=== PATIENT | female | born 1995 | race Caucasian/White ===

== ENCOUNTER 2021-08-31 17:23 | Emergency (ER) | payer BC, SELFPAY ==
[2021-08-31 17:45] VITALS: BP 114/71; PULSE 79; RESP 16; TEMP 36.2; O2SAT 99
--- NOTE | 2021-08-31 18:01 | ED.DENTAL ---
HPI - Dental/Oral General Chief complaint: Dental/Oral Stated complaint: tooth ache Time Seen by Provider: 08/31/21 18:01 Source: patient Mode of arrival: ambulatory Limitations: no limitations History of Present Illness HPI Narrative: Quyen Hebert is a 25 yo female with a PMH of dental pain, asthma, tobacco abuse, [facility] dental pain and left upper dental pain. Her dentition is poor-since she was unable to return to see you the dental school for missing appointments Related Data Home Medications Medication Instructions Recorded Confirmed albuterol sulfate 90 mcg/actuation 90 mcg inhalation DIRECTED 08/31/21 08/31/21 aerosol inhaler Allergies Allergy/AdvReac Type Severity Reaction Status Date / Time No Known Allergies Allergy Verified 09/17/15 17:57 Review of Systems Review of Systems: CONSTITUTIONAL: Denies fever, chills, sweats. EYES: Denies visual changes, redness, discharge. ENT: Denies rhinorrhea, congestion, sore throat, otalgia. CARDIOVASCULAR: Denies chest pain, palpitations, edema. RESPIRATORY: Denies dyspnea, wheezing, cough GASTROINTESTINAL: Denies abdominal pain, nausea, vomiting, diarrhea. GENITOURINARY: Denies dysuria, hematuria, abnormal discharge SKIN: Denies rash or itching. NEUROLOGIC: Denies numbness, or focal weakness. PSYCHIATRIC: Denies anxiety or depression. Bilateral lower dental pain the left upper dental pain PMFSH Past Medical History Medical History Asthma Tobacco abuse Social History Social History (Updated 08/31/21 @ 18:06 by Neha Moreira CNP) Smoking status: Current every day smoker Alcohol intake: current Comments At time of signature, I agree with nursing past medical, surgical, social and family history. There is no relevant family history pertinent to the presenting complaint. Exam Narrative: GENERAL: This is a well-nourished, well-developed patient, in mild distress. HEAD: normocephalic, atraumatic. EYES: Sclera clear/white. Vision is grossly intact. EARS: External ears normal, . Hearing grossly intact. NOSE: External nose normal without nasal discharge, nares without redness, no rhinorrhea. THROAT: Mucous membranes moist, has poor dentition on both posterior sides of teeth has pain in left upper side with some gum swelling NECK: Neck supple, non-tender CARDIOVASCULAR: Regular rate and rhythm without murmurs, gallops, or rubs. RESPIRATORY: Clear to auscultation. Breath sounds equal bilaterally. No wheezes, rales, or rhonchi. GASTROINTESTINAL: Not done SKIN: warm, intact with no suspicious lesions or rash, good texture and turgor. NEURO: awake, alert, and oriented to person, place and time. There were no obvious focal neurologic abnormalities. Steady gait EXTREMITIES: Normal range of motion. BACK: Nontender without deformity Course Course Emergency Course: Patient comes to [facility] with bilateral lower and left upper dental pain Missed appointment at [facility] dental [facility] was not allowed to return there for appointments and does not have a dentist Started on penicillin for tooth infection and given Tylenol 3 for pain may supplement this with ibuprofen 400 mg 2 times daily Level of Care: Express Care Visit Vital Signs Vital signs: Vital Signs Temperature 97.2 F L 08/31/21 17:45 Pulse Rate 79 08/31/21 17:45 Respiratory Rate 16 08/31/21 17:45 Blood Pressure 114/71 08/31/21 17:45 Pulse Oximetry 99 08/31/21 17:45 Oxygen Delivery Room Air 08/31/21 17:45 Temperature 97.2 F L 08/31/21 17:45 Pulse Rate 79 08/31/21 17:45 Respiratory Rate 16 08/31/21 17:45 Blood Pressure 114/71 08/31/21 17:45 Pulse Oximetry 99 08/31/21 17:45 Oxygen Delivery Room Air 08/31/21 17:45 MDM - Dental/Oral Differential Diagnosis Differential diagnosis: Likely gingival abscess, dental caries, toothache, dental abscess and other Critic
== END 2021-08-31 18:28 | disposition home or self-care (01) ==
PROVIDERS: Emergency Provider Nurse Practitioner
DX: K04.7 Periapical abscess without sinus (principal); J45.909 Unspecified asthma, uncomplicated
CPT/HCPCS: 99213; G0463

== ENCOUNTER 2021-09-18 23:28 | Emergency (ER) | payer BC, SELFPAY ==
--- NOTE | ~2021-09-18 | XR_ITS ---
EXAMINATION: XR knee LT 3V DATE: 09/19/2021 00:15 INDICATION: Left knee pain. Fall. TECHNIQUE: 3 views of left knee were obtained. COMPARISON: None. FINDINGS: Bone alignment is normal. No fracture. There is a benign bone island in proximal tibia. Emelia nt spaces are well maintained. There is no knee joint effusion. IMPRESSION: 1. No fracture. Reviewed, dictated and finalized at location A. IMPRESSION: 1. No fracture.
--- NOTE | ~2021-09-18 | XR_ITS ---
EXAMINATION: XR ankle LT min 3V DATE: 09/19/2021 00:15 INDICATION: Left ankle pain. Fall. TECHNIQUE: 4 views of left ankle were obtained. COMPARISON: Left ankle radiographs 04/06/2009 FINDINGS: Bone alignment is normal. No fracture. There is mild osteoarthritis of talonavicular joint. There are enthesophytes at the posterior and plantar aspects of calcaneal tuberosity. IMPRESSION: 1. No fracture. Reviewed, dictated and finalized at location A. IMPRESSION: 1. No fracture.
[2021-09-18 23:29] VITALS: BP 113/79; PULSE 96; RESP 17; TEMP 36.1; O2SAT 98
--- NOTE | 2021-09-18 23:55 | ED.LOWEXIN ---
HPI - Extremity Injury (Lower) General Chief Complaint: Extremity Injury, Lower Stated Complaint: Left knee pain, left ankle pain Time Seen by Provider: 09/18/21 23:40 History of Present Illness HPI Narrative: Patient is a 25-year-old female complaining of left knee and left ankle pain after she tripped and fell earlier today. Patient states that her pain is 6 out of 10, aching, worse with palpation and movement. Patient states that she was able to stand up and ambulate after the fall. Patient denies any symptoms prior to the fall. Patient denies any head, neck, chest, abdomen, back, pelvis or any other extremity pain/injury. Related Data Allergies Allergy/AdvReac Type Severity Reaction Status Date / Time No Known Allergies Allergy Verified 09/18/21 23:34 Review of Systems Review of Systems: See HPI All systems reviewed & are unremarkable except as noted in HPI and below PMFSH Past Medical History Medical History Asthma Tobacco abuse Social History Social History Smoking status: Current every day smoker Alcohol intake: current Exam Const: General: cooperative, healthy appearing, comfortable, no acute distress, well developed, alert and awake; No confusion Orientation/consciousness: oriented to person, oriented to place, oriented to time, patient oriented x3 and No confusion Limitations: no limitations HENMT: Head: normal to inspection, normocephalic and atraumatic Ears: hearing grossly normal bilaterally, TM normal on the right and TM normal on the left General nose exam: Normal external nose present, Normal nares present and No nasal discharge present Face and sinus: normal facial exam Mouth: Yes Normal oral and palatal mucosa present, Yes lip normal, Yes tongue normal and Yes oropharynx normal Throat: posterior oropharynx normal, tonsils normal and uvula midline Eyes: General: appearance normal, both eyes and all related structures Pupils: Equal, round and reactive pupils present EOM: EOMs intact bilaterally Neck: Neck: normal visual inspection, full ROM, no lymphadenopathy and no meningeal signs Chest: Chest palpation & inspection: normal inspection of the chest Resp: Effort & Inspection: normal respiratory effort, able to speak in complete sentences, no respiratory distress and not tachypneic Auscultation: clear to auscultation bilaterally, no crackles, no rales, no rhonchi and no wheezes Cardio: Rate: regular rate Rhythm: regular rhythm GI: Inspection: normal to inspection GI Palp: No abdominal tenderness, Yes Soft to palpation, No Tenderness to palpation present (GI), No Guarding due to palpation present (GI), No Rigid due to palpation and No Rebound tenderness present Auscultation: normal bowel sounds : General: Yes no CVA tenderness Back/Spine/Pelvis: Back: no CVA tenderness Skin: General skin exam: normal color, no rashes or lesions noted, elasticity normal and turgor normal Neuro: General: oriented to person, oriented to place, oriented to time, patient oriented x3, tone normal, moves all extremities, Normal light touch and pain sensation, no meningeal signs, no focal motor deficits, CN's II-XI intact bilaterally and No confusion Cranial nerves: Yes Equal, round and reactive pupils present Speech: No Abnormal speech present Sensory Exam: No Sensory deficit (Neuro) Extrem: General: full ROM and capillary refill normal Other: Negative for any deformity or swelling. Abrasion of the left knee. Full range of motion with pain. Negative for any left ankle deformity or swelling. Pain on range of motion. Neurovascular is intact bilateral lower extremities. Psych: Appearance: grossly normal and well kempt Mental Status: mental status grossly normal Speech and movement: Normal speech and movement present Affect: normal affect Attitude: cooperative Thought process: Normal thought proc
[2021-09-19] MEDS: KETOROLAC 30 MG/ML VIAL (*BKC) IM (01:07)
[2021-09-19 01:30] VITALS: BP 111/84; PULSE 64; RESP 15; O2SAT 99
== END 2021-09-19 01:32 | disposition home or self-care (01) ==
PROVIDERS: Emergency Provider Emergency Medicine
DX: S80.212A Abrasion, left knee, initial encounter (principal); S96.912A Strain of unspecified muscle and tendon at ankle and foot level, left foot, initial encounter; J45.909 Unspecified asthma, uncomplicated
CPT/HCPCS: 73562; 73610; 96372; 99284; J1885

== ENCOUNTER 2021-09-28 19:15 | Emergency (ER) | payer BC, SELFPAY ==
[2021-09-28 19:22] VITALS: BP 121/73; PULSE 87; RESP 16; TEMP 36.8; O2SAT 99
--- NOTE | 2021-09-28 19:29 | ED.URI ---
HPI - URI/Sore Throat General Chief Complaint: Upper Respiratory Infection Stated Complaint: uri Time Seen by Provider: 09/28/21 19:29 Source: patient and RN notes reviewed Mode of arrival: ambulatory Limitations: no limitations History of Present Illness HPI Narrative: 25-year-old female presented for headache, body aches, sinus pressure/congestion, cough, nausea, decreased appetite fever/chills. Stating she had 2 positive COVID tests at home. Symptoms started 2 days ago. Patient is requesting a work note. MD elicited complaint: cough Related Data Allergies Allergy/AdvReac Type Severity Reaction Status Date / Time No Known Allergies Allergy Verified 09/28/21 19:26 Review of Systems Review of Systems: CONSTITUTIONAL: Endorses malaise EYES: Denies visual changes, redness, or discharge ENT: Reports rhinorrhea, congestion, sinus pain, otalgia, sore throat CARDIOVASCULAR: Denies chest pain, palpitations, edema RESPIRATORY: Reports cough, post nasal drainage. Denies dyspnea GASTROINTESTINAL: Denies abdominal pain SKIN: Denies rash or itching MUSCULOSKELETAL: Endorses myalgia PMFSH Past Medical History Medical History Asthma Tobacco abuse Social History Social History Smoking status: Current every day smoker Alcohol intake: current Exam Narrative: GENERAL: Ill-appearing, nontoxic EYES: conjunctivae clear ENT: Mucous membranes moist. TMs pearly [place] with dull light reflex bilaterally; no tragal tenderness. CHEST: Clear to auscultation, breath sounds equal. No wheezing, rhonchi, rales, or stridor. No respiratory distress, speaks in full sentences. HEART: Regular rate and rhythm. No murmur heard. SKIN: Warm, dry, no rash. NEURO: Alert and oriented x3. PSYCH: Normal mood and affect Course Course Emergency Course: Patient is aware of diagnosis, understands and agrees to treatment plan. Anticipatory guidance given. Patient agrees to follow-up as directed and is aware of reasons to seek care at the emergency department. Portions of this record may have been created with voice recognition software Level of Care: Express Care Visit Vital Signs Vital signs: Vital Signs Temperature 98.3 F 09/28/21 19:22 Pulse Rate 87 09/28/21 19:22 Respiratory Rate 16 09/28/21 19:22 Blood Pressure 121/73 09/28/21 19:22 Pulse Oximetry 99 09/28/21 19:22 Oxygen Delivery Room Air 09/28/21 19:22 Temperature 98.3 F 09/28/21 19:22 Pulse Rate 87 09/28/21 19:22 Respiratory Rate 16 09/28/21 19:22 Blood Pressure 121/73 09/28/21 19:22 Pulse Oximetry 99 09/28/21 19:22 Oxygen Delivery Room Air 09/28/21 19:22 reviewed MDM - URI/Sore Throat MDM Narrative Medical decision making narrative: Given patient's 2 positive COVID test and her symptoms, she is advised to continue quarantine and no additional covid testing is required. She will be given a work note. Advised supportive measures and signs/symptoms to go to the ER. Pt is appropriate for outpt treatment and f/u. Differential Diagnosis Differential diagnosis: Likely upper respiratory infection, sinusitis and viral infection Discharge Plan Discharge Clinical Impression: Viral infection Patient Disposition: Home, Self-Care Condition: Stable Instructions: COVID-19 (Coronavirus Disease 2019) (ED) Additional Instructions: Based on positive home covid tests: The following recommendations have been made by the CDC and local Health Departments, regarding COVID-19: -Those individuals with mild cases of COVID-19 can generally be discontinued from isolation 5 days AFTER the onset of symptoms AND the resolution of fever for 24hrs (without the use of fever-reducing medications)* -When you return to public, wear a mask at all times for an additional 5 days Rest, stay hydrated. Tylenol 1000mg every 8 hours as needed for pain
== END 2021-09-28 19:46 | disposition home or self-care (01) ==
PROVIDERS: Emergency Provider Nurse Practitioner Family
DX: B34.9 Viral infection, unspecified (principal); J45.909 Unspecified asthma, uncomplicated; F17.200 Nicotine dependence, unspecified, uncomplicated
CPT/HCPCS: 99213; G0463

== ENCOUNTER 2021-10-27 17:25 | Emergency (ER) | payer BC, SELFPAY ==
[2021-10-27 17:34] VITALS: BP 125/68; PULSE 85; RESP 16; TEMP 36.3; O2SAT 98
--- NOTE | 2021-10-27 17:46 | ED.DENTAL ---
HPI - Dental/Oral General Chief complaint: Dental/Oral Stated complaint: toothache Time Seen by Provider: 10/27/21 17:38 Source: patient History of Present Illness HPI Narrative: this is a 25-year-old female with some chronic tooth decay with surrounding gum inflammation was seen approximately 1 month ago at an [facility] and given antibiotics and pain medication and given information for follow-up to a dentist. currently no fever chills no nausea or vomiting no shortness of breath. Was given penicillin the previous visit at the [facility] and she said that she developed a rash. Teeth map: 1. dental abscess with surrounding gum inflammation and dental tenderness with palpation Onset (ago): week(s) Duration: intermittent Severity: moderate Severity scale (1-10): 6 Relieving factors: NSAIDs Exacerbating factors: chewing, cold, drinking fluids and swallowing Context: history of dental caries Associated symptoms: gum swelling Related Data Allergies Allergy/AdvReac Type Severity Reaction Status Date / Time Penicillins Allergy Itching Verified 10/27/21 17:38 Review of Systems Review of Systems: All systems reviewed & are unremarkable except as noted in HPI and below PMFSH Past Medical History Medical History Asthma Tobacco abuse Social History Social History Smoking status: Current every day smoker Alcohol intake: current Exam Const: General: healthy appearing and no acute distress HENMT: Head: normal to inspection Other: Chronic tooth decay with surrounding gum inflammation right upper molar area Eyes: Pupils: Equal, round and reactive pupils present Neck: Neck: normal visual inspection and no lymphadenopathy Chest: Chest palpation & inspection: normal inspection of the chest Resp: Effort & Inspection: normal respiratory effort Auscultation: clear to auscultation bilaterally Cardio: Rate: regular rate Rhythm: regular rhythm GI: Auscultation: normal bowel sounds Skin: General skin exam: normal color Rashes: no rashes Wounds: no wounds Neuro: General: patient oriented x3 and moves all extremities Speech: normal speech Extrem: General: normal to inspection and no clubbing, cyanosis or edema Psych: Mental Status: mental status grossly normal Affect: normal affect Course Course Emergency Course: will send medication to her local pharmacy. Vital Signs Vital signs: Vital Signs Temperature 36.3 C L 10/27/21 17:34 Pulse Rate 85 09/08/22 17:34 Respiratory Rate 16 10/27/21 17:34 Blood Pressure 125/68 10/27/21 17:34 Pulse Oximetry 98 10/27/21 17:34 Oxygen Delivery Room Air 10/27/21 17:34 Temperature 36.3 C L 10/27/21 17:34 Pulse Rate 85 10/27/21 17:34 Respiratory Rate 16 10/27/21 17:34 Blood Pressure 125/68 10/27/21 17:34 Pulse Oximetry 98 10/27/21 17:34 Oxygen Delivery Room Air 10/27/21 17:34 Critical Care Time Critical Care Time Critical Care Time: No Discharge Plan Discharge Clinical Impression: Dental abscess, Toothache, Dental caries Patient Disposition: Home, Self-Care Condition: Stable Instructions: Antibiotic Form, Dental Abscess (ED) Additional Instructions: He take medicine as prescribed and follow-up primary care physician if symptoms persist or worsen. Keep follow-up appointment with your dentist Prescriptions: New sulfamethoxazole-trimethoprim [Bactrim DS] 800-160 mg tablet 1 tablet PO Q12H Qty: 20 0RF oxycodone-acetaminophen [Percocet] 5-325 mg tablet 1 tablet PO Q6H PRN (Reason: pain) Qty: 20 0RF Follow-up/Referrals: UNKNOWN,DOCTOR [Primary Care Provider] - Stand Alone Forms: Work/School Release IP Time of Disposition: 17:52
[2021-10-27 18:04] VITALS: BP 125/68; PULSE 85; RESP 16; TEMP 36.3; O2SAT 100
== END 2021-10-27 18:08 | disposition home or self-care (01) ==
LOC: CHSED 17:56
PROVIDERS: Emergency Provider Emergency Medicine
DX: K04.7 Periapical abscess without sinus (principal); K08.89 Other specified disorders of teeth and supporting structures; K02.9 Dental caries, unspecified
CPT/HCPCS: 99283